=== PATIENT | male | born 1985 | race Caucasian/White ===

== ENCOUNTER 2016-10-11 03:18 | Emergency (ER) | payer MEDICAID ==
[2016-10-11 06:55] VITALS: BP 112/73
== END 2016-10-11 06:55 | disposition home or self-care (01) ==
LOC: ED 03:18
DX: R07.9 Chest pain, unspecified (principal); R00.2 Palpitations
CPT/HCPCS: Q0092

== ENCOUNTER 2016-10-19 12:58 | Emergency (ER) | payer MEDICAID ==
[~2016-10-19] VITALS: Ht 165.1 cm; Wt 53.3 kg
[2016-10-19 15:24] LABS: microscopic required? YES; urine erythrocyte TRACE (NEGATIVE)
[2016-10-19 15:29] LABS: BASOPHIL % 0.9 % (0-2); PLATELET COUNT 308 x10^3mcL (130-400); RED CELL DISTRIBUTION WIDTH 12.9 % (11.5-14.5)
[2016-10-19 16:14] VITALS: BP 110/60
[2016-10-19 16:19] LABS: ALBUMIN 3.6 g/dL (3.4-5.0); ALKALINE PHOSPHATASE 85 U/L (46-116); ALT/SGPT 33 U/L (16-63); AST/SGOT 22 U/L (15-37); BILIRUBIN TOTAL 0.6 mg/dL (0.20-1.00); CARBON DIOXIDE 25.7 mmol/L (21-32); CHLORIDE SERUM 100 mmol/L (98-107); CREATININE SERUM 0.9 mg/dL (0.7-1.3); GFR1 > 60 mL/min; GLUCOSE SERUM 94 mg/dL (74-106); LIPASE 70 IU/L (73-393); POTASSIUM SERUM 4.4 mmol/L (3.5-5.1); SODIUM SERUM 138 mmol/L (136-145); TOTAL PROTEIN, SERUM 7.8 g/dL (6.4-8.2)
[2016-10-19 16:22] LABS: CALCIUM 9.2 mg/dL (8.5-10.1)
== END 2016-10-19 16:14 | disposition home or self-care (01) ==
LOC: ED 12:58
PROVIDERS: Emergency Medicine
DX: R10.9 Unspecified abdominal pain (principal)
CPT/HCPCS: 83880; J1885; J7030

== ENCOUNTER 2017-07-25 03:48 | Emergency (ER) | payer MEDICAID ==
[~2017-07-25] VITALS: Ht 165.1 cm; Wt 54.0 kg
[2017-07-25 04:39] LABS: BASOPHIL % 0.4 % (0-2); PLATELET COUNT 194 x10^3mcL (130-400); RED CELL DISTRIBUTION WIDTH 12.5 % (11.5-14.5)
[2017-07-25 04:48] LABS: CALCIUM 9.2 mg/dL (8.5-10.1); CARBON DIOXIDE 29.8 mmol/L (21-32); CHLORIDE SERUM 102 mmol/L (98-107); CREATININE SERUM 0.8 mg/dL (0.7-1.3); GFR1 > 60 mL/min; GLUCOSE SERUM 112 mg/dL (74-106); POTASSIUM SERUM 3.6 mmol/L (3.5-5.1); SODIUM SERUM 139 mmol/L (136-145)
[2017-07-25 05:00] LABS: microscopic required? NO
[2017-07-25 05:01] LABS: ALKALINE PHOSPHATASE 59 U/L (46-116); ALT/SGPT 32 U/L (16-63); AST/SGOT 27 U/L (15-37); FREE T4 1.07 ng/dL (0.76-1.46); TOTAL PROTEIN, SERUM 7.8 g/dL (6.4-8.2)
[2017-07-25 05:20] LABS: urine erythrocyte NEGATIVE (NEGATIVE)
[2017-07-25 05:45] LABS: AMPHETAMINE QUAL UR NONE DETECTED (NEG <=1000)
[2017-07-25 07:01] VITALS: BP 105/63
== END 2017-07-25 07:01 | disposition home or self-care (01) ==
LOC: ED 03:48
PROVIDERS: Emergency Medicine
DX: R42 Dizziness and giddiness (principal); R07.2 Precordial pain; R51 Headache
CPT/HCPCS: 36415; 83880; 84439; J8597

== ENCOUNTER 2018-03-09 18:44 | Emergency (ER) | payer MEDICAID ==
[~2018-03-09] VITALS: Ht 165.1 cm; Wt 57.4 kg
[2018-03-09 18:58] VITALS: Ht 165.1 cm; Wt 57.4 kg
[2018-03-09 21:47] VITALS: BP 120/84
== END 2018-03-09 21:47 | disposition home or self-care (01) ==
LOC: ED 18:44
DX: F41.0 Panic disorder [episodic paroxysmal anxiety] (principal); F41.9 Anxiety disorder, unspecified

== ENCOUNTER 2018-05-13 17:03 | Emergency (ER) | payer MEDICAID ==
[~2018-05-13] VITALS: Ht 167.6 cm; Wt 57.6 kg
[2018-05-13 17:32] VITALS: BP 125/90; Ht 167.6 cm; Wt 57.6 kg
== END 2018-05-13 20:29 | disposition left against medical advice (07) ==
LOC: ED 17:03
DX: Z53.21 Procedure and treatment not carried out due to patient leaving prior to being seen by health care provider (principal)

== ENCOUNTER 2018-07-10 19:14 | Emergency (ER) | payer MEDICAID ==
[~2018-07-10] VITALS: Ht 167.6 cm; Wt 59.4 kg
[2018-07-10 19:21] VITALS: Ht 167.6 cm; Wt 59.4 kg
[2018-07-10 19:50] LABS: BASOPHIL % 0.5 % (0-2); PLATELET COUNT 233 x10^3mcL (130-400); RED CELL DISTRIBUTION WIDTH 13.6 % (11.5-14.5)
[2018-07-10 19:55] LABS: CALCIUM 8.7 mg/dL (8.5-10.1); CHLORIDE SERUM 103 mmol/L (98-107); GFR1 > 60 mL/min; GLUCOSE SERUM 118 mg/dL (74-106); POTASSIUM SERUM 3.8 mmol/L (3.5-5.1); SODIUM SERUM 141 mmol/L (136-145)
[2018-07-10 20:00] LABS: ALKALINE PHOSPHATASE 67 U/L (46-116); ALT/SGPT 62 U/L (16-63); AST/SGOT 27 U/L (15-37); TOTAL PROTEIN, SERUM 7.5 g/dL (6.4-8.2)
[2018-07-10 20:43] VITALS: BP 126/85
== END 2018-07-10 20:43 | disposition home or self-care (01) ==
LOC: ED 19:14
PROVIDERS: Emergency Medicine
DX: R07.89 Other chest pain (principal); F41.9 Anxiety disorder, unspecified; F14.10 Cocaine abuse, uncomplicated; F15.10 Other stimulant abuse, uncomplicated
CPT/HCPCS: 36415; 85378; Q0092

== ENCOUNTER 2019-11-04 20:52 | Emergency (ER) | payer SELFPAY ==
[~2019-11-04] VITALS: Ht 167.6 cm; Wt 53.5 kg
[2019-11-04 21:04] VITALS: Ht 167.6 cm; Wt 53.5 kg
[2019-11-04 22:01] LABS: BASOPHIL % 1.3 % (0-2); PLATELET COUNT 197 x10^3mcL (130-400); RED CELL DISTRIBUTION WIDTH 13.1 % (11.5-14.5)
[2019-11-04 22:12] LABS: CALCIUM 9.3 mg/dL (8.5-10.1); CARBON DIOXIDE 36.6 mmol/L (21-32); CHLORIDE SERUM 98 mmol/L (98-107); CREATININE SERUM 0.9 mg/dL (0.7-1.3); GFR1 > 60 mL/min; GLUCOSE SERUM 98 mg/dL (74-106); POTASSIUM SERUM 3.7 mmol/L (3.5-5.1); SODIUM SERUM 137 mmol/L (136-145)
[2019-11-04 23:14] VITALS: BP 105/73
[2019-11-04 23:59] LABS: AMPHETAMINE QUAL UR NONE DETECTED (See below)
== END 2019-11-04 23:14 | disposition home or self-care (01) ==
LOC: ED 20:52
PROVIDERS: Emergency Medicine
DX: R07.89 Other chest pain (principal); R51 Headache; R11.0 Nausea
CPT/HCPCS: Q0092